=== PATIENT | female | born 2000 | race Caucasian/White ===

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

== ENCOUNTER 2019-06-17 22:20 | Emergency (ER) | payer MEDICAID | END 2019-06-17 23:10 | disposition left against medical advice (07) | LOC: ER 22:20 | DX: Z53.20 Procedure and treatment not carried out because of patient's decision for unspecified reasons (principal) ==